=== PATIENT | female | born 1995 | race Caucasian/White ===

== ENCOUNTER 2019-04-16 15:50 | Emergency (ER) | payer BC, OTHER ==
[~2019-04-16] VITALS: Ht 167.6 cm; Wt 63.6 kg
[2019-04-16 16:28] VITALS: BP 126/80
[2019-04-16] MEDS ORDERED: ketorolac trometh inj. 60 MG/2 ML VIAL IM ONE (17:25)
[2019-04-16] MEDS ORDERED: ketorolac trometh. 30mg/ml inj. IM ONE (17:25)
[2019-04-16] MEDS ORDERED: CYCL-1 PO (17:25)
== END 2019-04-16 17:43 | disposition home or self-care (01) ==
LOC: ER 15:51
DX: M54.6 Pain in thoracic spine (principal); G89.29 Other chronic pain; Z79.899 Other long term (current) drug therapy; X58.XXXA Exposure to other specified factors, initial encounter; Y93.89 Activity, other specified; Y92.89 Other specified places as the place of occurrence of the external cause; Y99.8 Other external cause status
CPT/HCPCS: 96372; 99283; J1885